=== PATIENT | female | born 1985 | race Caucasian/White ===

== ENCOUNTER 2018-11-09 19:06 | Emergency (ER) | payer BC, OTHER ==
[2018-11-09 19:26] VITALS: BP 98/39; PULSE 79; TEMP 98.2; BMI 34.0
--- NOTE | 2018-11-09 20:42 | PDOC ---
History of Present Illness - General History Source: Patient Exam Limitations: No Limitations - History of Present Illness Initial Comments: 11/09/18 21:07 The patient is a 33 year old A2 female with no significant past medical history who presents to the emergency department for evaluation of a 3 day history of back pain with nausea and vomiting. Patient reports moderate lower back pain which radiates to her lower abdomen. She reports intermittent episodes of nausea with non bloody emesis. Denies prior history of c-sections. Patient states she knows she is as she had a recent positive test. Denies any care consultation. Patient denies taking medication for her aforementioned symptoms. Patients LMP 08/19/18. The patient denies vaginal bleeding, chest pain, shortness of breath, headache, dizziness, fever, chills, diarrhea and constipation. Denies dysuria, frequency, urgency and hematuria. Allergies: No known drug allergies Past surgical history: None reported. Social history: No reported cigarette, alcohol, or drug use. PCP: None reported <Roc Moreno - Last Filed: 11/09/18 21:07> <Emelia Worrell - Last Filed: 11/09/18 22:58> - General Chief Complaint: Pain Stated Complaint: 4 W PREG/BACK PAIN Time Seen by Provider: 11/09/18 20:26 Past History <Roc Moreno - Last Filed: 11/09/18 21:07> - Past Medical History COPD: No DVT: No Other medical history: Pt denies - Reproductive History (#): 3 Para: 2 - Suicide/Smoking/Psychosocial Hx Smoking History: Never smoked Have you smoked in the past 12 months: No Information on smoking cessation initiated: No Hx Alcohol Use: No Drug/Substance Use Hx: No <Emelia Worrell - Last Filed: 11/09/18 22:58> - Past Medical History Allergies/Adverse Reactions: Allergies Allergy/AdvReac Type Severity Reaction Status Date / Time No Known Allergies Allergy Verified 11/09/18 19:22 Home Medications: Ambulatory Orders NK [No Known Home Medication] 01/31/18 Review of Systems - Review of Systems Able to Perform ROS?: Yes Comments:: 11/09/18 21:07 CONSTITUTIONAL: Absent: fever, chills, diaphoresis, generalized weakness, malaise, loss of appetite HEENT: Absent: rhinorrhea, nasal congestion, throat pain, throat swelling, difficulty swallowing, mouth swelling, ear pain, eye pain, visual Changes CARDIOVASCULAR: Absent: chest pain, syncope, palpitations, irregular heart rate, lightheadedness , peripheral edema RESPIRATORY: Absent: cough, shortness of breath, dyspnea with exertion, orthopnea, wheezing, stridor, hemoptysis GASTROINTESTINAL: (+)Nausea. (+)Vomiting. Absent: abdominal pain, abdominal distension, diarrhea, constipation, melena, hematochezia GENITOURINARY: Absent: dysuria, frequency, urgency, hesitancy, hematuria, flank pain, genital pain MUSCULOSKELETAL: (+)back pain. Absent: myalgia, arthralgia, joint swelling SKIN: Absent: rash, itching, pallor HEMATOLOGIC/IMMUNOLOGIC: Absent: easy bleeding, easy bruising, lymphadenopathy, frequent infections ENDOCRINE: Absent: unexplained weight gain, unexplained weight loss, heat intolerance, cold intolerance NEUROLOGIC: Absent: headache, focal weakness or paresthesias, dizziness, unsteady gait, seizure, mental status changes, bladder or bowel incontinence PSYCHIATRIC: Absent: anxiety, depression, suicidal or homicidal ideation, hallucinations. <Ry Morenojhon - Last Filed: 11/09/18 21:07> *Physical Exam - Vital Signs Last Vital Signs Temp Pulse Resp BP Pulse Ox 98.2 F 79 18 98/39 L 100 11/09/18 19:23 11/09/18 19:23 11/09/18 19:23 11/09/18 19:23 11/09/18 19:23 - Physical Exam Comments: 11/09/18 21:07 GENERAL: Well developed, well nourished. Awake and alert. No acute distress. HEENT: Normocephalic, atraumatic. PERRLA, EOMI. No conjunctival pallor. Sclera are non- icteric. Moist mucous membranes. Oropharynx is clear. NECK: Supple. Full ROM. No JVD. Carotid pulses 2+ and symmetric, without bruits. No thyromegaly. No lymphadenopathy. CARDIOVASCULAR: Regular rate and rhythm. No murmurs, rubs, or gallops. Distal pulses are 2+ and symmetric. PULMONARY: No evidence of respiratory distress. Lungs clear to auscultation bilaterally. No wheezing, rales or rhonchi. ABDOMINAL: Soft. Non-tender. Non-distended. No rebound or guarding. No organomegaly. Normoactive bowel sounds. MUSCULOSKELETAL (+)bilateral lumbar pain. Normal range of motion at all joints. EXTREMITIES: No cyanosis. No clubbing. No edema. No calf tenderness. SKIN: Warm and dry. Normal capillary refill. No rashes. No jaundice. NEUROLOGICAL: Alert, awake, appropriate. Cranial nerves 2-12 intact. No deficits to light touch and temperature in face, upper extremities and lower extremities. No motor deficits in the in face, upper extremities and lower extremities. Normoreflexic in the upper and lower extremities. Normal speech. Toes are down- going bilaterally. Gait is normal without ataxia. PSYCHIATRIC: Cooperative. Good eye contact. Appropriate mood and affect. <Roc Moreno - Last Filed: 11/09/18 21:07> - Vital Signs Last Vital Signs Temp Pulse Resp BP Pulse Ox 98.2 F 79 18 98/39 L 100 11/09/18 19:23 11/09/18 19:23 11/09/18 19:23 11/09/18 19:23 11/09/18 19:23 <Emelia Worrell - Last Filed: 11/09/18 22:58> *DC/Admit/Observation/Transfer - Attestations Scribe Attestion: 11/09/18 21:07 Documentation prepared by Roc Moreno, acting as biomedical specialist for Emelia Worrell MD. <Roc Moreno - Last Filed: 11/09/18 21:07> <Emelia Worrell - Last Filed: 11/09/18 22:58> Diagnosis at time of Disposition: Hyperemesis gravidarum Qualifiers: Weeks of gestation: 8 weeks Qualified Code(s): Z3A.08 - 8 weeks gestation of - Discharge Dispostion Disposition: HOME Condition at time of disposition: Stable - Patient Instructions Additional Instructions: please follow up with your human resources trainee
[2018-11-09] MEDS ORDERED: ACETAMINOPHEN 325 MG TABLET (FP) ONE (21:03)
[2018-11-09] MEDS ORDERED: ACETAMINOPHEN 500 MG TABLET (FP) PO STA (21:05)
[2018-11-09 21:34] LABS: EPI CELLS 6.3 /HPF (0-5); HYALINE CASTS 0 /hpf (0-8); URINE APPEARANCE CLEAR; URINE BACTERIA 102.276 /hpf (NEGATIVE); URINE BILIRUBIN NEGATIVE (NEGATIVE); URINE COLOR YELLOW; URINE GLUCOSE (UA) NEGATIVE (NEGATIVE); URINE KETONE NEGATIVE (NEGATIVE); URINE LEUK ESTERASE TRACE (NEGATIVE); URINE NITRITE NEGATIVE (NEGATIVE); URINE PROTEIN NEGATIVE (NEGATIVE); URINE RBC 1 /hpf (0-4); URINE UROBILINOGEN 0.2 mg/dL (0.2-1.0); URINE WBC 3 /hpf (0-5)
== END 2018-11-09 23:02 | disposition home or self-care (01) ==
LOC: JER 19:06
DX: O26.891 Other specified pregnancy related conditions, first trimester (principal); O21.0 Mild hyperemesis gravidarum; Z3A.01 Less than 8 weeks gestation of pregnancy
CPT/HCPCS: 36415; 76801-TC; 81003; 84702; 87086; 99282-25

== ENCOUNTER 2018-11-29 07:47 | Emergency (ER) | payer SELFPAY ==
[2018-11-29 07:57] VITALS: BP 119/41; PULSE 70; TEMP 97.9; BMI 29.4
[2018-11-29] MEDS ORDERED: diphenhydrAMINE HCL 25 MG CAPSULE (FP) PO ONE ×2 (08:40→08:48)
[2018-11-29] MEDS ORDERED: HYDROCORTISONE 1% TOPICAL OINT 30 GM TUBE TP ONE (08:43)
--- NOTE | 2018-11-29 08:59 | PDOC ---
Attending Attestation - Resident Resident Name: Ulysses Aguiar - ED Attending Attestation I have performed the following: I have examined & evaluated the patient, The case was reviewed & discussed with the resident, I agree w/resident's findings & plan, Exceptions are as noted - HPI HPI: 11/29/18 08:59 33 F , @ 12 weeks, presenting to ED with scalp itching. Pt states that her scalp started itching a few days ago and has been progressively worsening. She denies any new shampoos or conditioners. However, she states that since she started having itching, she has been washing her hair 3 times daily. Denies any rash. Denies itching anywhere else on her body. Pt denies h/o eczema. No h/o lice or fungal infections. - Physicial Exam PE: 11/29/18 09:05 GENERAL: Awake, alert, and fully oriented, in no acute distress. HEAD: No signs of trauma EYES: PERRLA, EOMI, sclera anicteric, conjunctiva clear ENT: Auricles normal inspection, hearing grossly normal, nares patent, oropharynx clear without exudates. Moist mucosa NECK: Nontender, no stepoffs, Normal ROM, supple, no lymphadenopathy, JVD, or masses LUNGS: Breath sounds equal, clear to auscultation bilaterally. No wheezes, and no crackles HEART: Regular rate and rhythm, normal S1 and S2, no murmurs, rubs or gallops ABDOMEN: Soft, nontender, normoactive bowel sounds. No guarding, no rebound. No masses EXTREMITIES: Normal range of motion, no edema. No clubbing or cyanosis. No cords, erythema, or tenderness NEUROLOGICAL: Cranial nerves II through XII intact. 5/5 strength and sensation in all extremities, Normal speech, normal gait, normal cerebellar function SKIN: mildly erythematous scalp with no ulcers or lesions, no folliculitis, no scaling, no excoriations, no scabs, no nits or lice - Medical Decision Making 11/29/18 09:06 33 F with scalp itching. Possible allergic reaction vs atopic dermatitis. No evidence of lice. No scaling lesions to suggest tinea. No signs of folliculitis or other skin infection. - Benadryl - Topical steroids - Derm f/u Pt is well appearing, with normal vitals. Clinically stable for DC at this time. I discussed the physical exam findings, ancillary test results and final diagnoses with the patient. I answered all of the patient's questions. The patient was satisfied with the care received and felt comfortable with the discharge plan and treatment plan. The patient agrees to follow up with the primary care physician within 24-72 hours.
--- NOTE | 2018-11-29 09:40 | PDOC ---
History of Present Illness - General Chief Complaint: Headache Stated Complaint: HEADACHE, 11wks Time Seen by Provider: 11/29/18 07:49 - History of Present Illness Initial Comments: 11/29/18 09:39 33 F , , at 12 weeks, presenting to ED with scalp itching and pain. Pt states that her scalp started itching on Thursday and got much worse over the past few days to the point where her scalp in painful. She dyes her own hair and the last time it was dyed was 12 days ago. No new hair products used. However, she states that since she started having itching, she has been washing her hair 3 times daily. Complains that her lymph nodes are swollen behing her ear and over her neck. Denies any rash. Denies itching anywhere else on her body. Pt denies h/o eczema. No h/o lice or fungal infections. Past History - Past Medical History Allergies/Adverse Reactions: Allergies Allergy/AdvReac Type Severity Reaction Status Date / Time No Known Allergies Allergy Verified 11/29/18 07:52 Home Medications: Ambulatory Orders Diphenhydramine [Benadryl -] 50 mg PO DAILY #20 capsule 11/29/18 COPD: No DVT: No - Reproductive History (#): 3 Para: 2 - Suicide/Smoking/Psychosocial Hx Smoking History: Never smoked Have you smoked in the past 12 months: No Information on smoking cessation initiated: No Hx Alcohol Use: No Drug/Substance Use Hx: No Review of Systems - Review of Systems Able to Perform ROS?: Yes Is the patient limited Vietnamese proficient: No Constitutional: No: Symptoms Reported HEENTM: Yes: See HPI Respiratory: No: Symptoms reported Cardiac (ROS): No: Symptoms Reported ABD/GI: No: Symptoms Reported Integumentary: Yes: See HPI Neurological: No: Symptoms reported All Other Systems: Reviewed and Negative *Physical Exam - Vital Signs Last Vital Signs Temp Pulse Resp BP Pulse Ox 97.9 F 70 17 119/41 L 100 11/29/18 07:49 11/29/18 07:49 11/29/18 07:49 11/29/18 07:49 11/29/18 07:49 - Physical Exam General Appearance: Yes: Nourished, Appropriately Dressed, Mild Distress HEENT: positive: Other (no rashes or wounds seen over scalp, no lice or eggs either. ) Respiratory/Chest: positive: Lungs Clear, Normal Breath Sounds. negative: Chest Tender, Respiratory Distress Cardiovascular: positive: Regular Rhythm, Regular Rate, S1, S2 Gastrointestinal/Abdominal: positive: Normal Bowel Sounds, Flat, Soft. negative : Tender Integumentary: positive: Normal Color, Dry, Warm Neurologic: positive: Fully Oriented, Alert, Normal Mood/Affect, Normal Response , Motor Strength 12/19 ED Treatment Course - Medications Given in the ED: ED Medications Discontinued Medications Generic Name Dose Route Start Last Admin Trade Name Dieter PRN Reason Stop Dose Admin Diphenhydramine HCl 50 mg 11/29/18 08:40 11/29/18 09:09 Benadryl - PO 11/29/18 08:41 50 mg ONCE ONE Administration Hydrocortisone 1 applic 11/29/18 08:43 11/29/18 09:09 Hytone 1% Ointment - TP 11/29/18 08:44 1 applic ONCE ONE Administration Medical Decision Making - Medical Decision Making 11/29/18 09:51 Atopic dermatitis of vs allergic reaction vs tenia capitus No sign of rash or skin lesions over scalp. Will give trial of Benadryl and reassess the patient. Patient feels much better after Benadryl administration. ok to dc *DC/Admit/Observation/Transfer Diagnosis at time of Disposition: Allergic reaction - Discharge Dispostion Disposition: HOME Condition at time of disposition: Improved Decision to Admit order: No - Prescriptions Prescriptions: Diphenhydramine [Benadryl -] 50 mg PO DAILY #20 capsule - Referrals - Patient Instructions Printed Discharge Instructions: Allergen Skin Testing Additional Instructions: Purchase a hydrating shampoo. Come back to the emergency department for any new, worsening or concerning symptom. Print Language: TURKMEN - Post Discharge Activity
== END 2018-11-29 10:01 | disposition home or self-care (01) ==
LOC: JER 07:47
DX: O26.891 Other specified pregnancy related conditions, first trimester (principal); L29.8 Other pruritus; T78.40XA Allergy, unspecified, initial encounter; Z3A.12 12 weeks gestation of pregnancy
CPT/HCPCS: 99281-25

== ENCOUNTER 2018-12-02 15:26 | Emergency (ER) | payer BC ==
[2018-12-02 15:48] VITALS: BP 95/66; PULSE 84; TEMP 98.6; BMI 26.2
[2018-12-02] MEDS ORDERED: LORATADINE 10 MG TABLET PO ONE (16:27)
[2018-12-02] MEDS ORDERED: diphenhydrAMINE HCL 25 MG CAPSULE (FP) PO ONE ×2 (16:29→16:31)
[2018-12-02] MEDS ORDERED: LORATADINE 10 MG TABLET ONE (16:31)
--- NOTE | 2018-12-02 16:36 | PDOC ---
History of Present Illness - General Chief Complaint: Itching Stated Complaint: 11 WKS/ HAND,FEET RASH Time Seen by Provider: 12/02/18 16:05 History Source: Patient - History of Present Illness Initial Comments: 12/02/18 16:30 33 year old female 11 weeks with itchiness to scalp, palm of hands and sole of feet b/l since yesterday. took benadryl last night with no improvement in symptoms. Past History - Past Medical History Allergies/Adverse Reactions: Allergies Allergy/AdvReac Type Severity Reaction Status Date / Time No Known Allergies Allergy Verified 11/29/18 07:52 Home Medications: Ambulatory Orders Diphenhydramine [Benadryl -] 50 mg PO DAILY #20 capsule 11/29/18 Loratadine [Claritin] 10 mg PO DAILY #30 tablet 12/02/18 Pramoxine HCl/Calamine [Calamine Medicated Lotion] 1 ml TP QID PRN #1 lotion COPD: No DVT: No - Reproductive History (#): 3 Para: 2 - Immunization History Immunization Up to Date: No - Suicide/Smoking/Psychosocial Hx Smoking History: Never smoked Have you smoked in the past 12 months: No Information on smoking cessation initiated: No Hx Alcohol Use: No Drug/Substance Use Hx: No Review of Systems - Review of Systems Able to Perform ROS?: Yes Is the patient limited South African proficient: No Constitutional: Yes: Symptoms Reported Integumentary: Yes: Pruritus *Physical Exam - Vital Signs Last Vital Signs Temp Pulse Resp BP Pulse Ox 98.6 F 84 18 95/66 99 12/02/18 15:43 12/02/18 15:43 12/02/18 15:43 12/02/18 15:43 12/02/18 15:43 - Physical Exam General Appearance: Yes: Appropriately Dressed HEENT: positive: Normal ENT Inspection Respiratory/Chest: positive: Lungs Clear, Normal Breath Sounds Integumentary: positive: Other (erythema to sole of feet and palm of hands. ) Neurologic: positive: Fully Oriented, Alert Progress Note - Progress Note Progress Note: allergic / hypersensitivity to products p: benadryl claritin calamine advised hypoallergenic products *DC/Admit/Observation/Transfer Diagnosis at time of Disposition: Allergic reaction Qualifiers: Encounter type: initial encounter Qualified Code(s): T78.40XA - Allergy, unspecified, initial encounter - Discharge Dispostion Disposition: HOME Condition at time of disposition: Stable - Prescriptions Prescriptions: Loratadine [Claritin] 10 mg PO DAILY #30 tablet Pramoxine HCl/Calamine [Calamine Medicated Lotion] 1 ml TP QID PRN #1 lotion PRN Reason: For Itching - Referrals - Patient Instructions Printed Discharge Instructions: DI for General Allergic Reactions Additional Instructions: apply calamine lotion to the area. take claritin daily start using hypoallergenic products. follow up with your doctor as soon as possible. - Post Discharge Activity Forms/Work/School Notes: Back to Work
== END 2018-12-02 16:51 | disposition home or self-care (01) ==
LOC: JERFT 15:26
DX: O26.891 Other specified pregnancy related conditions, first trimester (principal); T78.49XA Other allergy, initial encounter; X58.XXXA Exposure to other specified factors, initial encounter
CPT/HCPCS: 99281-25

== ENCOUNTER 2019-01-19 15:20 | Emergency (ER) | payer BC | END 2019-01-19 18:57 | disposition home or self-care (01) | LOC: JER 15:20 ==

== ENCOUNTER 2019-06-06 06:50 | Inpatient (IN) | payer BC ==
[2019-06-06] MEDS: ELECTROLYTE-148 SOLN 1,000 ML IV SCH ×2 (10:15→21:00)
[2019-06-06 10:20] VITALS: BMI 27.6
[2019-06-06] MEDS ORDERED: AMPICILLIN - 2 GM in SODIUM CHLORIDE 100 ML IVPB ONE (10:30)
[2019-06-06] MEDS ORDERED: OXYTOCIN 30 UNITS in 0.9% NS 30 UNIT/500 ML INFUS.BAG IVPB SCH (10:30)
[2019-06-06] MEDS ORDERED: AMPICILLIN SODIUM 2 GM VIAL ONE (10:42)
[2019-06-06 10:47] LABS: BASO % 0.7 % (0-2.0); HEMATOCRIT 41.2 % (32.4-45.2); HEMOGLOBIN 13.6 GM/dL (10.7-15.3); LYMPH % 19.9 % (8-40); MEAN CELL VOLUME 84.8 fl (80-96); MEAN PLT VOLUME 7.9 fl (7.5-11.1); MONO % 5.5 % (3.8-10.2); NEUT % 72.9 % (42.8-82.8); PLATELET COUNT 435 K/MM3 (134-434); RBC 4.86 M/mm3 (3.60-5.2); RDW 15.4 % (11.6-15.6); WHITE BLOOD COUNT 9.7 K/mm3 (4.0-10.0)
--- NOTE | 2019-06-06 10:56 | HP ---
Past Medical History - Admission Chief Complaint: Labor pain History of Present Illness: 33 yo @ 38 weeks gestation, EDC, 06/18/19, admitted for labor pain. She denies any rupture of membrane nor vaginal bleeding. Upon admission she was 4cm dilated History Source: Patient Limitations to Obtaining History: No Limitations - Past Medical History Pulmonary: Yes: Asthma ...: 5 ...Para: 2 ...Term: 2 ...: 0 ...Spon : 2 ...Induced : 0 ...Multiple Gestation: 0 ...LMP: 12/08/18 ...EDC by Sono: 06/18/19 - Past Surgical History Past Surgical History: Yes: None Hx Myomectomy: No Hx Transabdominal Cerclage: No - Smoking History Smoking history: Never smoked Have you smoked in the past 12 months: No - Alcohol/Substance Use Hx Alcohol Use: No - Social History Usual Living Arrangement: Yes: With Significant Other History of Recent Travel: No Home Medications - Allergies Allergies/Adverse Reactions: Allergies Allergy/AdvReac Type Severity Reaction Status Date / Time kiwi Allergy Mild Swelling Verified 06/06/19 08:11 - Home Medications Home Medications: Ambulatory Orders Albuterol Sulfate Inhaler - [Ventolin HFA Inhaler -] 1 puff PO PRN 06/06/19 Family Medical History Family History: Unremarkable Review of Systems - Review of Systems Constitutional: reports: No Symptoms Eyes: reports: No Symptoms HENT: reports: No Symptoms Neck: reports: No Symptoms Cardiovascular: reports: No Symptoms Respiratory: reports: No Symptoms Gastrointestinal: reports: No Symptoms Genitourinary: reports: Pain Breasts: reports: No Symptoms Reported Musculoskeletal: reports: No Symptoms Integumentary: reports: No Symptoms Neurological: reports: No Symptoms Endocrine: reports: No Symptoms Hematology/Lymphatic: reports: No Symptoms Psychiatric: reports: No Symptoms Pain Intensity: 5 Physical Exam - Maternity Vital Signs: Vital Signs Temperature 97.7 F 06/06/19 10:06 Pulse Rate 78 06/06/19 10:06 Respiratory Rate 17 06/06/19 10:06 Blood Pressure 119/80 06/06/19 10:06 O2 Sat by Pulse Oximetry (%) Constitutional: Yes: Well Nourished Eyes: Yes: Conjunctiva Clear HENT: Yes: Atraumatic Neck: Yes: Supple Cardiovascular: Yes: Regular Rate and Rhythm Lungs: Clear to auscultation Breast(s): Yes: WNL - Abdominal Exam/OB Number of Fetuses: Single Presentation: Vertex Contractions: Yes - Vaginal Exam/OB Vaginal Bleediing: No Dilatation (cm): 4 Effacement (%): 80 Amniotic Membrane Status: Intact Presentation: Vertex/Position Station: -2 - Physical Exam ...Motor Strength: WNL Psychiatric: Yes: Alert, Oriented - Labs Lab Results: CBC, BMP 06/06/19 10:20 Problem List - Problems (1) 38 weeks gestation of Code(s): Z3A.38 - 38 WEEKS GESTATION OF (2) Pain during labor Code(s): O99.89 - OTH DISEASES AND CONDITIONS COMPL PREG/CHLDBRTH; R52 - PAIN, UNSPECIFIED Assessment/Plan 38 weeks gestation Labor pain Analgesia as needed Anticipate
[2019-06-06] MEDS ORDERED: DEXTROSE 5%-LACTATED RINGERS 1,000 ML IV SCH (11:00)
[2019-06-06 11:01] LABS: INR 0.91 (0.83-1.09); PROTHROMBIN TIME (PATIENT) 10.7 SEC (9.7-13.0)
[2019-06-06 11:04] LABS: ACTIVATED PTT 28.8 SECONDS (25.2-36.5)
[2019-06-06 11:06] LABS: BLOOD UREA NITROGEN 8.2 mg/dL (7-18); CALCIUM 9.1 mg/dL (8.5-10.1); CREATININE 0.6 mg/dL (0.55-1.3); POTASSIUM 4.1 mmol/L (3.5-5.1)
[2019-06-06] MEDS ORDERED: OXYTOCIN 30 UNITS in 0.9% NS 30 UNIT/500 ML INFUS.BAG IVPB ONE (12:32)
[2019-06-06] MEDS ORDERED: BUTORPHANOL TARTRATE 1 MG/ML VIAL ONE ×2 (13:49)
[2019-06-06] MEDS ORDERED: PROMETHAZINE HCL 25 MG/1 ML VIAL ONE (13:49)
[2019-06-06] MEDS ORDERED: OXYTOCIN 20 UNITS in 0.9% NS 20 UNIT/1,000 ML INFUS.BAG IV ONE ×3 (14:46→19:06)
[2019-06-06] MEDS ORDERED: WITCH HAZEL 50% (TUCKS) 40 PAD/JAR PAD TP PRN (15:50)
[2019-06-06] MEDS ORDERED: METHYLERGONOVINE MALEATE 0.2 MG/1 ML AMP IM PRN (15:50)
[2019-06-06] MEDS ORDERED: BISACODYL 10 MG SUPP.RECT RC PRN (15:50)
[2019-06-06] MEDS ORDERED: BENZOCAINE 20% 57 GM BOTTLE TP PRN (15:50)
[2019-06-06] MEDS ORDERED: BENZOCAINE 28 GM HEMORRHOIDAL OINTMENT TP PRN (15:50)
--- NOTE | 2019-06-06 15:54 | PN ---
Delivery - Delivery Vaginal Delivery: Spontaneous Episiotomy/Laceration: None EBL (cc): 300 Delivery, Single - Feeding Plan Initial Plan: Exclusive throughout hospitalization Remarks - Remarks Remarks: Normal spontaneous vaginal delivery of a live girl over intact perineum. Tight nuchal cord x 1 clamped and cut. Baby handed to nurse. Placenta expelled manually. Mother in stable condition.
[2019-06-06] MEDS ORDERED: OXYTOCIN 20 UNITS in 0.9% NS 20 UNIT/1,000 ML INFUS.BAG IV SCH (16:00)
[2019-06-06] MEDS ORDERED: IBUPROFEN 600 MG TABLET (FP) PO ONE (16:46)
[2019-06-06] MEDS ORDERED: ACETAMINOPHEN 325 MG TABLET (FP) ONE (16:47)
[2019-06-06] MEDS: IBUPROFEN 600 MG TABLET (FP) PO PRN (16:48)
[2019-06-06] MEDS: ACETAMINOPHEN 325 MG TABLET (FP) PO PRN (16:49)
[2019-06-06] MEDS: AMPICILLIN - 1 GM in SODIUM CHLORIDE 100 ML IVPB SCH ×3 (16:54→21:50)
[2019-06-06] MEDS ORDERED: MEPERIDINE HCL 50 MG/ML VIAL ONE (18:48)
[2019-06-06] MEDS ORDERED: SUCCINYLCHOLINE CHLORIDE 200 MG/10 ML SYRINGE ONE (19:18)
[2019-06-06] MEDS ORDERED: PROPOFOL 20 ML ONE (19:18)
[2019-06-06] MEDS ORDERED: MIDAZOLAM HCL 2 MG/2 ML SINGLE DOSE VIAL ONE (19:18)
[2019-06-06] MEDS ORDERED: PHENYLEPHRINE HCL 10 MG/1 ML SINGLE DOSE VIAL ONE (19:26)
--- NOTE | 2019-06-06 19:30 | CONSULT ---
Past Medical History, Laborist - Primary Care Physician PCP:: Ambar Dow - Admission Chief Complaint: Called to the patient's bedside by nursing staff. Reason: hemorrhage not responding to oxytocin. Patient is few hours after vaginal delivery of her third child. Nurse could not controlled the bleeding. Uterus difficult to palpate. Active bleeding. Limitations to Obtaining History: Language Barrier - Past Medical History ...: 5 ...Para: 2 ...Term: 2 ...: 0 ...Spon : 2 ...Induced : 0 ...Multiple Gestation: 0 ...LMP: 12/08/18 ...EDC by Sono: 06/18/19 - Past Surgical History Past Surgical History: Yes: None - Smoking History Smoking history: Never smoked Have you smoked in the past 12 months: No - Alcohol/Substance Use Hx Alcohol Use: No - Social History Usual Living Arrangement: With Spouse History of Recent Travel: No Physical Exam - Maternity Vital Signs: Vital Signs Temperature 99.6 F 06/06/19 15:30 Pulse Rate 82 06/06/19 19:05 Respiratory Rate 17 06/06/19 19:05 Blood Pressure 105/56 L 06/06/19 19:05 O2 Sat by Pulse Oximetry (%) 98 06/06/19 16:30 Constitutional: Yes: Well Nourished HENT: Yes: WNL - Labs Lab Results: CBC, BMP 06/06/19 10:20 06/06/19 09:53 Problem List - Problems (1) hemorrhage Code(s): O72.1 - OTHER IMMEDIATE HEMORRHAGE (2) Retained placenta Code(s): O73.0 - RETAINED PLACENTA WITHOUT HEMORRHAGE Assessment/Plan Called to the patient who was bleeding profusely. Bleeding could not be controlled with medication. Patient was also in pain and uncooperative. few hours prior. On examination uterus was noted to be boggy and very difficult to palpate the fundus. Abdomen was soft and nontender otherwise. Pelvic examination showed intact vagina. There was close to 1000 mL of clots in the posterior vaginal fornix. This was all removed digitally. Vital signs were stable. With clots removed cervix was palpated. Internal os was closed. There was a sense of part of placenta in the internal os. Fundus was palpated and massaged with good reaction. Uterus firmed up and bleeding subsided. Still, I suspected it retained placental tissue trapped in the cervix. PLAN was to insert Acuña catheter to empty her bladder and to take patient to the operating room. Under short and light anesthesia placental tissue would be digitally removed and large curet D&C followed. At that point patient's attending, Dr. Dow, arrived and took over the management of the case.
[2019-06-06] MEDS ORDERED: ONDANSETRON 4 MG/2 ML VIAL IVPUSH PRN (19:44)
[2019-06-06] MEDS ORDERED: IBUPROFEN 600 MG TABLET (FP) PO PRN (19:45)
[2019-06-06] MEDS ORDERED: KETOROLAC TROMETHAMINE 30 MG/1 ML VIAL IVPUSH ONE (19:45)
[2019-06-06] MEDS ORDERED: D5W-LR W/ 20 UNITS OXYTOCIN 20 UNIT/1,000 ML INFUS.BAG IV SCH (19:45)
[2019-06-06] MEDS ORDERED: ACETAMINOPHEN 1000 MG/100 ML VIAL (NON FORMULARY) IVPB ONE (19:45)
[2019-06-06 22:44] LABS: HEMATOCRIT 27.9 % (32.4-45.2); MCH 27.5 pg (25.7-33.7); MCHC 32.3 g/dl (32.0-36.0); MEAN CELL VOLUME 85.2 fl (80-96); MEAN PLT VOLUME 7.8 fl (7.5-11.1); PLATELET COUNT 354 K/MM3 (134-434); RBC 3.27 M/mm3 (3.60-5.2); RDW 15.2 % (11.6-15.6); WHITE BLOOD COUNT 11.5 K/mm3 (4.0-10.0)
[2019-06-06] MEDS ORDERED: OXYTOCIN 10 UNITS/ML VIAL ONE (22:48)
[2019-06-06 22:57] LABS: INR 1.02 (0.83-1.09)
--- NOTE | 2019-06-06 23:03 | CONSULT ---
Past Medical History, Laborist - Primary Care Physician PCP:: Ambar Dow - Admission Chief Complaint: Called to bedside, patient is in PACU, s/p and PP D&C by Dr. Dow. Nurses noted significan VB and clots post procedure. Noted HR - 105. BP 90s/50s History of Present Illness: Spoke to on the phone, she informed me that there was no tissue on D&C, and no lacerations found. - Past Medical History ...: 5 ...Para: 2 ...Term: 2 ...: 0 ...Spon : 2 ...Induced : 0 ...Multiple Gestation: 0 ...LMP: 12/08/18 ...EDC by Sono: 06/18/19 - Past Surgical History Past Surgical History: Yes: None - Smoking History Smoking history: Never smoked Have you smoked in the past 12 months: No - Alcohol/Substance Use Hx Alcohol Use: No - Social History History of Recent Travel: No Physical Exam - Maternity Vital Signs: Vital Signs Temperature 98.7 F 06/06/19 19:48 Pulse Rate 75 06/06/19 20:15 Respiratory Rate 17 06/06/19 20:15 Blood Pressure 99/54 L 06/06/19 20:15 O2 Sat by Pulse Oximetry (%) 97 06/06/19 20:15 Constitutional: Yes: Well Nourished, No Distress, Calm - Abdominal Exam/OB Fundal Height: 22 (above umbilicus) - Vaginal Exam/OB Vaginal Bleediing: Yes (total 600cc blood and clots extracted bladder found to be distanded) - Labs Lab Results: CBC, BMP 06/06/19 22:15 Assessment/Plan Acuña catheter placed, 1100cc Urine drained 1000mg Cytotec placed rectally Uterus further decloted CBC, PT,PTT sent continue monitoring in the PACU
[2019-06-06 23:37] LABS: BLOOD UREA NITROGEN 7.7 mg/dL (7-18); CALCIUM 7.2 mg/dL (8.5-10.1); CREATININE 0.5 mg/dL (0.55-1.3); POTASSIUM 3.9 mmol/L (3.5-5.1)
[2019-06-07] MEDS: FERROUS SO4 325 MG TABLET (FP) PO SCH ×3 (00:50→21:24)
[2019-06-07] MEDS: ACETAMINOPHEN 325 MG TABLET (FP) PO PRN ×4 (03:00→21:26)
[2019-06-07] MEDS: IBUPROFEN 600 MG TABLET (FP) PO PRN ×3 (03:00→15:18)
--- NOTE | 2019-06-07 08:40 | OP ---
Operative Note - Note: Operative Date: 06/06/19 Pre-Operative Diagnosis: hemorrhage Operation: Suction D&C Findings: No retained of placenta Post-Operative Diagnosis: Same as Pre-op Surgeon: Ambar Dow Anesthesia: Spinal Specimens Removed: POC Estimated Blood Loss (mls): 50 Operative Report Dictated: Yes
[2019-06-07 10:32] LABS: BASO % 0.3 % (0-2.0); EOS % 0.6 % (0-4.5); HEMATOCRIT 19.5 % (32.4-45.2); LYMPH % 14.4 % (8-40); MCH 28.8 pg (25.7-33.7); MCHC 34.1 g/dl (32.0-36.0); MEAN CELL VOLUME 84.6 fl (80-96); MEAN PLT VOLUME 7.6 fl (7.5-11.1); MONO % 5.6 % (3.8-10.2); NEUT % 79.1 % (42.8-82.8); PLATELET COUNT 302 K/MM3 (134-434); RBC 2.31 M/mm3 (3.60-5.2); RDW 15.4 % (11.6-15.6); WHITE BLOOD COUNT 10.9 K/mm3 (4.0-10.0)
[2019-06-07 10:33] LABS: HEMOGLOBIN 6.7 GM/dL (10.7-15.3)
--- NOTE | 2019-06-07 10:47 | PN ---
Progress Note (short form) - Note Progress Note: Anesthesia POD#1 S/P D&C and Removal of Retained products under spinal anesthesia VSS,Hg dropped profoundly 6gm. No N/V or pain. She might have to go to the OR for re-exploration. Please do T/C 2 units of PRBCs Sherri Atkins MD.
--- NOTE | 2019-06-07 10:48 | PN ---
Post Progress Note - Subjective Subjective: 33 yo Para 3 status post vaginal delivery complicated by hemorrhage, seen and evaluated. Post Day: 1 Type of Delivery: Vital Signs: Vital Signs Temperature 98.7 F 06/07/19 08:54 Pulse Rate 92 H 06/07/19 08:54 Respiratory Rate 20 06/07/19 08:54 Blood Pressure 95/61 06/07/19 08:54 O2 Sat by Pulse Oximetry (%) 97 06/07/19 05:39 - Labs Labs: CBC WBC 10.9 K/mm3 (4.0-10.0) H 06/07/19 09:38 RBC 2.31 M/mm3 (3.60-5.2) L 06/07/19 09:38 Hgb 6.7 GM/dL (10.7-15.3) L* 06/07/19 09:38 Hct 19.5 % (32.4-45.2) L D 06/07/19 09:38 MCV 84.6 fl (80-96) 06/07/19 09:38 MCH 28.8 pg (25.7-33.7) 06/07/19 09:38 MCHC 34.1 g/dl (32.0-36.0) 06/07/19 09:38 RDW 15.4 % (11.6-15.6) 06/07/19 09:38 Plt Count 302 K/MM3 (134-434) 06/07/19 09:38 MPV 7.6 fl (7.5-11.1) 06/07/19 09:38 Absolute Neuts (auto) 8.6 K/mm3 (1.5-8.0) H 06/07/19 09:38 Neutrophils % 79.1 % (42.8-82.8) 06/07/19 09:38 Lymphocytes % 14.4 % (8-40) D 06/07/19 09:38 Monocytes % 5.6 % (3.8-10.2) 06/07/19 09:38 Eosinophils % 0.6 % (0-4.5) 06/07/19 09:38 Basophils % 0.3 % (0-2.0) 06/07/19 09:38 Nucleated RBC % 0 % (0-0) 06/07/19 09:38 Problem List - Problems (1) 38 weeks gestation of Code(s): Z3A.38 - 38 WEEKS GESTATION OF (2) Pain during labor Code(s): O99.89 - OTH DISEASES AND CONDITIONS COMPL PREG/CHLDBRTH; R52 - PAIN, UNSPECIFIED
[2019-06-07] MEDS: PRENATAL VITAMINS W/ FOLIC ACID TABLET (FP) PO SCH (11:04)
--- NOTE | 2019-06-07 12:09 | OP ---
DATE OF OPERATION: 06/06/2019 PREOPERATIVE DIAGNOSIS: hemorrhage. POSTOPERATIVE DIAGNOSES: hemorrhage. PROCEDURE: Suction dilation and curettage. SURGEON: Ambar Dow MD ANESTHESIA: Spinal. ESTIMATED BLOOD LOSS: 50 mL. DESCRIPTION OF PROCEDURE: Patient was taken to the operating room several hours after vaginal delivery due to heavy bleeding. Due to suspicion of retained placenta, patient was then taken to the operating room for a suction dilation and curettage. In the operating room, she was placed in lithotomy position. After general anesthesia, a weighted speculum was placed in the vagina. The anterior lip of the cervix was grasped with a single-tooth tenaculum. Then a 12-mm suction curette was then gently introduced into the uterine cavity. The suction curette was rotated to clear the uterus of all products of conception. There were no large pieces found. No placenta was found. Then the instruments were removed. The patient was taken out of lithotomy position. She was taken to PACU in stable condition. AMBAR DOW M.D. WEN/[id number]
[2019-06-07] MEDS ORDERED: SENNOSIDES/DOCUSATE COMBO (SENNA PLUS) TABLET (UD) PO PRN (22:00)
[2019-06-08 00:46] LABS: BASO % 0.2 % (0-2.0); EOS % 2.1 % (0-4.5); HEMOGLOBIN 8.2 GM/dL (10.7-15.3); LYMPH % 20.6 % (8-40); MCH 27.8 pg (25.7-33.7); MCHC 32.9 g/dl (32.0-36.0); MEAN CELL VOLUME 84.7 fl (80-96); MEAN PLT VOLUME 7.8 fl (7.5-11.1); MONO % 8.9 % (3.8-10.2); NEUT % 68.2 % (42.8-82.8); PLATELET COUNT 298 K/MM3 (134-434); RBC 2.95 M/mm3 (3.60-5.2); RDW 14.8 % (11.6-15.6); WHITE BLOOD COUNT 10.4 K/mm3 (4.0-10.0)
[2019-06-08] MEDS: ACETAMINOPHEN 325 MG TABLET (FP) PO PRN ×2 (05:36→12:38)
[2019-06-08] MEDS: IBUPROFEN 600 MG TABLET (FP) PO PRN ×2 (05:36→12:38)
--- NOTE | 2019-06-08 07:00 | DS ---
Physical Exam-IT DIRECTOR Vital Signs: Vital Signs Temperature 97.4 F L 06/08/19 05:39 Pulse Rate 75 06/08/19 05:39 Respiratory Rate 18 06/08/19 05:39 Blood Pressure 94/59 L 06/08/19 05:39 O2 Sat by Pulse Oximetry (%) 97 06/07/19 05:39 Constitutional: Yes: Well Nourished, No Distress ....Post : Yes: Uterus firm, Uterus non-tender Breast(s): Yes: WNL Musculoskeletal: Yes: WNL Extremities: Yes: WNL Edema: No Neurological: Yes: WNL, Alert, Oriented Labs: CBC, BMP 06/08/19 00:00 06/06/19 22:15 Delivery - Delivery Vaginal Delivery: Spontaneous Type of Anesthesia: None Episiotomy/Laceration: None EBL (cc): 300 Delivery, Single - Stages of Labor Date 1st Stage Initiatied: 06/06/19 Time 1st Stage Initiated: 02:30 Date 2nd Stage Initiated: 06/06/19 Time 2nd Stage Initiated: 13:30 Date of Delivery: 06/06/19 Time of Delivery: 14:53 Time Placenta Delivered: 14:57 - Condition of Infant Oil Well Fishing Tool Technician/Senior Computer Specialist Present: Yes Name: Sarah Woodson Infant Gender: Female Weight: 6 lb 10 oz Position: Left, OA Total Hours ROM (Hrs/Mins): 1Hrs/27Mins - 1 Minute Total Score: 2 5 Minutes Total Score: 8 10 Minutes Total Score: 9 - Feeding Plan Initial Plan: Exclusive throughout hospitalization Discharge Summary Problems reviewed: Yes Reason For Visit: LABOR ADMISSION Current Active Problems 38 weeks gestation of (Acute) Pain during labor (Acute) hemorrhage (Acute) Retained placenta (Acute) Procedures: Principal: Normal vaginal delivery\. suction DC Hospital Course: hemorrhage transfusion Plan of Treatment: discharge home on Iron Condition: Stable - Instructions Diet, Activity, Other Instructions: Physical activity Resume your normal everyday activity as tolerated no heavy lifting or exercise until seen by your surgeon. You may walk unlimited franck of and climb stairs. You may resume driving the car when you feel safe and comfortable behind the wheel. No sexual activity as instructed. Wound care If you have a bandage, leave it on, and keep dry for 48-72 hours. After that time discard the outer bandage. If they are tapes on the skin under the out of bandage leave them in place. They will peel off in the next 7 to 10 days. Do Not Peel them off. You may shower the day after surgery. If there are tapes present on the skin, you may shower over them. Diet There are no dietary restrictions. Eat healthy, high-fiber foods. Drink 6 to 8 glasses of liquid each day. This will assist in keeping your bowels are regular. Pain management You may take Tylenol or acetaminophen or Ibuprofen (for example, Motrin, Advil etc.) from my pain prescription medication is ordered should be taken as prescribed for moderate to severe pain. Call MD for any of the following: Severe pain not relieved by medication Fever of 101 or higher Excessive bleeding or drainage on dressing Inability to urinate Disposition: HOME - Home Medications Comprehensive Discharge Medication List: Ambulatory Orders Albuterol Sulfate Inhaler - [Ventolin HFA Inhaler -] 1 puff PO PRN 06/06/19 Ibuprofen [Motrin -] 600 mg PO QID #28 tablet 06/08/19
[2019-06-08] MEDS: FERROUS SO4 325 MG TABLET (FP) PO SCH (11:06)
[2019-06-08] MEDS: PRENATAL VITAMINS W/ FOLIC ACID TABLET (FP) PO SCH (11:06)
[2019-06-08] MEDS ORDERED: IBUPROFEN 600 MG TABLET (FP) PO ONE (12:13)
[2019-06-08 16:06] VITALS: BP 117/65; PULSE 77; TEMP 98.4
--- NOTE | 2019-06-09 17:56 | PATH ---
Surgical Pathology Report Patient Name: ROSALBA EM [facility]. Rec. #: [id number] /Age/Gender: 1985 (Age: 33) / F Account: [id number] Location: [facility] OBS/PC ANALYST Taken: 06/06/2019 Received: 06/07/2019 Reported: 06/09/2019 Physicians: Ambar Dow M.D. Specimen(s) Received PRODUCTS OF CONCEPTION Clinical History Retained products of conception Final Diagnosis PRODUCTS OF CONCEPTION, SUCTION DILATION AND CURETTAGE: FRAGMENTS OF CERVICAL SQUAMOUS AND ENDOCERVICAL MUCOSA WITH MARKED ACUTE AND CHRONIC CERVICITIS, SOFT TISSUE WITH MARKED DEGENERATIVE CHANGES IN A BACKGROUND OF ABUNDANT BLOOD AND ACUTE IN FLAMMATORY INFILTRATE. NO DEFINITIVE ENDOMETRIAL TISSUE IDENTIFIED. Electronically Signed Neyda Gatica M.D. Gross Description Received in formalin labeled "products of conception," is a 5.5 x 5.0 x 0.8 cm aggregate of red-brown soft tissue fragments. No definite villous/placental tissue identified. The entire specimen is entirely submitted in 8 cassettes. /06/07/2019 saudi/06/07/2019
== END 2019-06-08 12:05 | disposition home or self-care (01) | DRG 797 ==
LOC: JDEL 06:50 → JLDR 09:30 → J3W 06-07 00:22
PROVIDERS: ADMIT Obstetrics & Gynecology; ATTEND Obstetrics & Gynecology
PROC: 10D17ZZ Extraction of Products of Conception, Retained, Via Natural or Artificial Opening (ICD-10-PCS; 2019-06-06)
PROC: 10E0XZZ Delivery of Products of Conception, External Approach (ICD-10-PCS; principal; 2019-06-06 19:02)
PROC: 30233N1 Transfusion of Nonautologous Red Blood Cells into Peripheral Vein, Percutaneous Approach (ICD-10-PCS; 2019-06-07)
DX: O69.81X0 Labor and delivery complicated by cord around neck, without compression, not applicable or unspecified (principal); O72.2 Delayed and secondary postpartum hemorrhage; R71.0 Precipitous drop in hematocrit; Z37.0 Single live birth; Z3A.38 38 weeks gestation of pregnancy
CPT/HCPCS: 36415; 36430; 36511; 36600; 59409; 76830-TC; 80048; 82803; 85025; 85027; 85610; 85730; 86593; 86850; 86900; 86901; 86922; 94760; J0131; J2175; P9038; P9058

== ENCOUNTER 2019-06-09 17:23 | Inpatient (IN) | payer BC ==
[2019-06-09] MEDS ORDERED: SODIUM CHLORIDE 1,000 ML IV STA (17:32)
--- NOTE | 2019-06-09 17:32 | PDOC ---
Rapid Medical Evaluation Time Seen by Provider: 06/09/19 17:24 Medical Evaluation: Allergies Allergy/AdvReac Type Severity Reaction Status Date / Time kiwi Allergy Mild Swelling Verified 06/06/19 08:11 06/09/19 17:24 CC: vaginal bleeding since vaginal delivery 06/07 PE: deferred Orders: labs, urine Patient will proceed to ED for further evaluation. Discharge Disposition - Diagnosis Vaginal bleeding - Referrals - Patient Instructions - Post Discharge Activity
[2019-06-09 18:08] LABS: BASO % 0.3 % (0-2.0); EOS % 2.9 % (0-4.5); HEMATOCRIT 25.6 % (32.4-45.2); HEMOGLOBIN 8.4 GM/dL (10.7-15.3); LYMPH % 13.2 % (8-40); MCHC 32.8 g/dl (32.0-36.0); MEAN CELL VOLUME 85.5 fl (80-96); MEAN PLT VOLUME 6.9 fl (7.5-11.1); MONO % 6.6 % (3.8-10.2); PLATELET COUNT 448 K/MM3 (134-434); RBC 2.99 M/mm3 (3.60-5.2); RDW 15.1 % (11.6-15.6); WHITE BLOOD COUNT 14.9 K/mm3 (4.0-10.0)
[2019-06-09 18:13] LABS: EPI CELLS 1.7 /HPF (0-5/HPF); HYALINE CASTS 17 /lpf (0-8); PH,URINE 6.5 (5.0-8.0); URINE APPEARANCE CLOUDY; URINE BILIRUBIN NEGATIVE (NEGATIVE); URINE COLOR ORANGE; URINE GLUCOSE (UA) NEGATIVE (NEGATIVE); URINE KETONE NEGATIVE (NEGATIVE); URINE LEUK ESTERASE 3+ (NEGATIVE); URINE NITRITE NEGATIVE (NEGATIVE); URINE PROTEIN TRACE (NEGATIVE); URINE RBC 911 /hpf (0-4); URINE UROBILINOGEN 0.2 mg/dL (0.2-1.0); URINE WBC 160 /hpf (0-5)
[2019-06-09] MEDS ORDERED: ACETAMINOPHEN 500 MG TABLET (FP) PO ONE (18:17)
[2019-06-09] MEDS ORDERED: ACETAMINOPHEN 325 MG TABLET (FP) ONE (18:25)
--- NOTE | 2019-06-09 18:27 | PDOC ---
History of Present Illness - General Chief Complaint: Vaginal Bleeding Stated Complaint: VAGINAL BLEEDING Time Seen by Provider: 06/09/19 17:24 History Source: Patient Exam Limitations: Language Barrier - History of Present Illness Travel History: No Initial Comments: 06/09/19 18:24 33y F with PMH of Asthma day 2 presenting to ED with complaints of vaginal bleeding. Patient gave vaginally 2d ago which was complicated by hemorrhage. US and DC were done which did not reveal retained products and patient was transfused with 2u of blood. Patient states she went home yesterday afternoon with some spotting. She is complaining of lower abdominal pain and headache for which she is taking 600mg ibuprofen without relief. She states that she has been using 2 pads/hr since this morning. Denies fever, chills, chest pain, sob, lightheadedness, n/v/d. PMD: none SPECIAL OFFICER AUTOMAT: [place] PMH: see hpi Meds: none Allergies: nkda Past History - Past Medical History Allergies/Adverse Reactions: Allergies Allergy/AdvReac Type Severity Reaction Status Date / Time kiwi Allergy Mild Swelling Verified 06/09/19 17:31 Home Medications: Ambulatory Orders Albuterol Sulfate Inhaler - [Ventolin HFA Inhaler -] 1 puff PO PRN 06/06/19 Ferrous Sulfate [Feosol] 325 mg PO BID #60 tablet 06/08/19 Ibuprofen [Motrin -] 600 mg PO QID #28 tablet 06/08/19 Asthma: Yes (last attack 1 1/2 years ago) Cancer: No Cardiac Disorders: No COPD: No DVT: No Diabetes: No HTN: No Seizures: No Thyroid Disease: No - Reproductive History (#): 3 Para: 4 Cervical CA: No Dysfunctional Uterine Bleeding: No Ectopic : No Endometrial CA: No Polycystic Ovaries: No Tubal Ligation: No Spontaneous : 4 - Immunization History Immunization Up to Date: No - Psycho Social/Smoking Cessation Hx Smoking History: Never smoked Have you smoked in the past 12 months: No Information on smoking cessation initiated: No Hx Alcohol Use: No Drug/Substance Use Hx: No Hx Substance Use Treatment: No Review of Systems - Review of Systems Constitutional: No: Chills, Fever HEENTM: No: Symptoms Reported Respiratory: No: Symptoms reported Cardiac (ROS): No: Symptoms Reported ABD/GI: Yes: See HPI : Yes: See HPI Musculoskeletal: Yes: Back Pain Integumentary: No: Symptoms Reported Neurological: No: Symptoms reported *Physical Exam - Vital Signs Last Vital Signs Temp Pulse Resp BP Pulse Ox 99.1 F 101 H 16 111/58 L 98 06/09/19 17:32 06/09/19 17:32 06/09/19 17:32 06/09/19 17:32 06/09/19 18:09 - Physical Exam General Appearance: Yes: Nourished, Appropriately Dressed, Mild Distress HEENT: positive: EOMI, DEWEY, Pale Conjunctivae Neck: positive: Trachea midline, Supple. negative: Lymphadenopathy (R), Lymphadenopathy (L) Respiratory/Chest: positive: Lungs Clear, Normal Breath Sounds Cardiovascular: positive: Regular Rhythm, Regular Rate, S1, S2. negative: Edema , JVD, Murmur Female Pelvic Exam: positive: vaginal bleeding (with clots). negative: CMT Gastrointestinal/Abdominal: positive: Normal Bowel Sounds, Soft, Tenderness ( lower abdominal tenderness) Musculoskeletal: negative: CVA Tenderness Extremity: positive: Normal Capillary Refill. negative: Pedal Edema, Swelling, Calf Tenderness Integumentary: positive: Dry, Warm, Pale Neurologic: positive: chief payroll clerk II-XII NML intact, Fully Oriented, Alert, Normal Mood/ Affect, Normal Response, Motor Strength /5 ED Treatment Course - LABORATORY CBC & Chemistry Diagram: 06/09/19 21:50 06/09/19 17:49 - ADDITIONAL ORDERS Additional order review: Laboratory Results 06/09/19 17:49 Urine Color [place] Urine Appearance Cloudy Urine pH 6.5 Ur Specific [place] 1.018 Urine Protein Trace Urine Glucose (UA) Negative Urine Ketones Negative Urine Blood 3+ H Urine Nitrite Negative Urine Bilirubin Negative Urine Urobilinogen 0.2 Ur Leukocyte Esterase 3+ H Urine WBC (Auto) 160 Urine RBC (Auto) 911 Urine Casts (Auto) 17 U Epithel Cells (Auto) 1.7 Urine Bacteria (Auto) 7.0 06/09/19 17:49 RBC 2.99 L MCV 85.5 MCHC 32.8 RDW 15.1 MPV 6.9 L D Neutrophils % 77.0 Lymphocytes % 13.2 D Monocytes % 6.6 Eosinophils % 2.9 Basophils % 0.3 Medical Decision Making - Medical Decision Making 06/09/19 21:50 33y F day 2 presenting with vaginal bleeding. vitals: tachycardia ddx includes but not limited to retained products, uterine atony, uti, appendicitis labs ordered by rme including ts iv fluids 975mg tylenol cased discussed wiht Dr. Dow, recommended to discuss case with dr control systems developer. labs show hgb 8 (was 6 prior to transfusion 2 d ago) leukocytosis 15 and uti -rocephin -toradol patient in pain still, will give iv toradol rpt tvus and ctap with iv contrast. patient states she has used two pads since being here (4h) 06/10/19 01:05 rpt h/h 7.5. discussed case multiple times with Dr. Akbar. Could not reach Dr. Dow. US: no retained products CTAp: Discussed case with Dr. Muir: will transfuse 1u and accepts patient to service. pt admited to Dr. Muir pt signed consent for transfusion. likely IR embolization to control bleeding. Discharge - Discharge Information Problems reviewed: Yes Clinical Impression/Diagnosis: Vaginal bleeding Condition: Stable - Admission Yes - Follow up/Referral - Patient Discharge Instructions - Post Discharge Activity
[2019-06-09 18:33] LABS: ALBUMIN 2.5 g/dl (3.4-5.0); BILIRUBIN,TOTAL 0.2 mg/dL (0.2-1); BLOOD UREA NITROGEN 7.4 mg/dL (7-18); CREATININE 0.6 mg/dL (0.55-1.3); POTASSIUM 3.4 mmol/L (3.5-5.1); TOT PROT 5.6 g/dl (6.4-8.2)
[2019-06-09 18:54] LABS: INR 0.84 (0.83-1.09); PROTHROMBIN TIME (PATIENT) 9.9 SEC (9.7-13.0)
--- NOTE | 2019-06-09 19:42 | PDOC ---
Documentation entered by Lindsey Porras SCRIBE, acting as scribe for Lashanda Narvaez DO. Lashanda Narvaez, DO: This documentation has been prepared by the Chiquita wall Adrianna, SCRIBE, under my direction and personally reviewed by me in its entirety. I confirm that the documentation accurately reflects all work, treatment, procedures, and medical decision making performed by me. Attending Attestation - Resident Resident Name: DebBisi - ED Attending Attestation I have performed the following: I have examined & evaluated the patient, The case was reviewed & discussed with the resident, I agree w/resident's findings & plan, Exceptions are as noted - HPI HPI: The patient is a 33 year old female, with a significant PMH of asthma, who presents to the ED for evaluation of vaginal bleeding for 2 days. Patient is day 2 , from a vaginal delivery that was complicated by hemorrhaging. US and DC following the were negative for retained products , and she was transfused with two units of blood. She reports some spotting yesterday afternoons, which progressively worsened to soaking through 2 pads every hour today. Patient endorses diffuse lower abdominal pain and headache. Allergies: Kiwi Surgical History: None reported Social History: Denies EtOH, tobacco, or illicit drug use PCP: None CLIPPER OPERATOR: Dr. Dow - Physicial Exam PE: Constitutional: Awake, alert, oriented. No acute distress. Head: Normocephalic. Atraumatic Eyes: PERRL. EOMI. Conjunctivae are not pale. ENT: Mucous membranes are moist and intact. Posterior pharynx without exudates or erythema. Uvula midline. Neck: Supple. Full ROM. No lymphadenopathy. Cardiovascular: +Tachycardic. Regular rhythm. S1, S2 regular. Distal pulses are 2+ and symmetric. Pulmonary/Chest: No evidence of respiratory distress. Clear to auscultation bilaterally No wheezing, rales or rhonchi. Abdominal: +Diffuse lower abdominal tenderness to palpation. Soft and non- distended. No rebound, guarding or rigidity. No organomegaly. No palpable masses. Good bowel sounds. Back: +Lumbar spine midline tenderness to palpation over epidural site, without cellulitis or drainage of fluid. No CVA tenderness. Musculoskeletal: No edema. No cyanosis. No clubbing. Full range of motion in all extremities. Nocalf tenderness. Radial/pedal pulses are intact and 2+ bilaterally Skin: Skin is warm and dry. No petechiae. No purpura. Neurological: Alert and oriented to person, place, and time. Cranial nerves II -XII are grossly intact. Normal speech. Strength is grossly symmetric. No sensory deficits. Psychiatric: Good eye contact. Normal interaction, affect and behavior. - Medical Decision Making 06/09/19 19:38 I, Dr. Lashanda Narvaez, DO, attest that this document has been prepared under my direction and personally reviewed by me in its entirety. I further attest, that it accurately reflects all work, treatment, procedures and medical decision -making performed by me. a/p: 33yo female 2 s/p vaginal delivery complicated by heavy vaginal bleeding s/ p d&c yesterday -pt still with bleeding today - passing clots, bled through 14 pads -c/o abd pain, back pain -pt c/o feeling lightheaded -will send labs, discuss with Dr. Dow, ivf hydration -pelvic per resident -will monitor and reassess 06/09/19 19:43 resident discussed the case with Dr. Dow who states she should be seen by OB irrigation system installer pt with elevated wbc pt with uti will start abx hgb stable - s/p transfusion after delivery 06/09/19 22:[address] Akbar who states pt needs to be seen by Dr. Dow another call placed to Dr. Dow - left message 06/09/19 23:26 case again discussed with Dr. Akbar who will attempt to get in touch with Dr. Dow 06/10/19 00:07 resident discussed the case with Dr. Muir who accepts pt to service ED Treatment Course - LABORATORY CBC & Chemistry Diagram: 06/09/19 21:50 06/09/19 17:49 - ADDITIONAL ORDERS Additional order review: Laboratory Results 06/09/19 06/09/19 06/09/19 17:49 17:49 17:49 PT with INR 9.90 INR 0.84 Sodium Potassium Chloride Carbon Dioxide Anion Gap BUN Creatinine Est GFR (CKD-EPI)AfAm Est GFR (CKD-EPI)NonAf Random Glucose Calcium Total Bilirubin AST ALT Alkaline Phosphatase Total Protein Albumin Urine Color [place] Urine Appearance Cloudy Urine pH 6.5 Ur Specific [place] 1.018 Urine Protein Trace Urine Glucose (UA) Negative Urine Ketones Negative Urine Blood 3+ H Urine Nitrite Negative Urine Bilirubin Negative Urine Urobilinogen 0.2 Ur Leukocyte Esterase 3+ H Urine WBC (Auto) 160 Urine RBC (Auto) 911 Urine Casts (Auto) 17 U Epithel Cells (Auto) 1.7 Urine Bacteria (Auto) 7.0 Blood Type O POSITIVE Antibody Screen Negative 06/09/19 17:49 PT with INR INR Sodium 140 Potassium 3.4 L Chloride 108 H Carbon Dioxide 25 Anion Gap 7 L BUN 7.4 Creatinine 0.6 Est GFR (CKD-EPI)AfAm 136.87 Est GFR (CKD-EPI)NonAf 118.09 Random Glucose 98 Calcium 8.0 L Total Bilirubin 0.2 AST 53 H ALT 42 Alkaline Phosphatase 132 H Total Protein 5.6 L Albumin 2.5 L Urine Color Urine Appearance Urine pH Ur Specific [place] Urine Protein Urine Glucose (UA) Urine Ketones Urine Blood Urine Nitrite Urine Bilirubin Urine Urobilinogen Ur Leukocyte Esterase Urine WBC (Auto) Urine RBC (Auto) Urine Casts (Auto) U Epithel Cells (Auto) Urine Bacteria (Auto) Blood Type Antibody Screen 06/09/19 06/09/19 21:50 17:49 RBC 2.64 L 2.99 L MCV 84.8 85.5 MCHC 33.7 32.8 RDW 15.2 15.1 MPV 6.9 L 6.9 L D Neutrophils % 75.4 77.0 Lymphocytes % 14.8 13.2 D Monocytes % 6.5 6.6 Eosinophils % 2.9 2.9 Basophils % 0.4 0.3 - RADIOLOGY Radiograph Interpretation: EXAM#: TYPE/EXAM: RESULT: [id number] US/PELVIC / BLADDER US HISTORY PROVIDED: Rule out retained products of conception. IMPRESSION: uterus with thickened endometrium and no definite evidence of retained products of conception. Reported By: Wood Garner MD 06/09/19 23:12 - Medications Given in the ED: ED Medications Discontinued Medications Generic Name Dose Route Start Last Admin Trade Name Freq PRN Reason Stop Dose Admin Acetaminophen 975 mg 06/09/19 18:17 06/09/19 18:30 Tylenol - PO 06/09/19 18:18 975 mg ONCE ONE Administration Sodium Chloride 1,000 mls @ 1,000 mls/hr 06/09/19 17:32 06/09/19 18:24 Normal Saline - IV 06/09/19 18:31 1,000 mls/hr ASDIR STA Administration Ceftriaxone Sodium 1 gm/ 100 mls @ 200 mls/hr 06/09/19 19:43 06/09/19 20:34 Dextrose IVPB 06/09/19 20:12 200 mls/hr ONCE ONE Administration Ibuprofen 600 mg 06/09/19 21:02 06/09/19 21:57 Motrin - PO 06/09/19 21:03 Not Given ONCE ONE Ketorolac Tromethamine 15 mg 06/09/19 21:25 06/09/19 21:56 Toradol Injection - IVPUSH 06/09/19 21:26 15 mg ONCE ONE Administration
[2019-06-09] MEDS ORDERED: CEFTRIAXONE 1 GM in DEXTROSE 5%-WATER - 100 ML IVPB ONE (19:43)
[2019-06-09] MEDS ORDERED: CEFTRIAXONE 1 GM/50 ML BAG ONE (20:28)
[2019-06-09] MEDS ORDERED: IBUPROFEN 600 MG TABLET (FP) PO ONE (21:02)
[2019-06-09] MEDS ORDERED: KETOROLAC TROMETHAMINE 30 MG/1 ML VIAL IVPUSH ONE (21:25)
[2019-06-09] MEDS ORDERED: KETOROLAC TROMETHAMINE 15 MG/ML VIAL ONE (21:46)
[2019-06-09 22:10] LABS: BASO % 0.4 % (0-2.0); EOS % 2.9 % (0-4.5); HEMATOCRIT 22.4 % (32.4-45.2); HEMOGLOBIN 7.5 GM/dL (10.7-15.3); LYMPH % 14.8 % (8-40); MCH 28.5 pg (25.7-33.7); MCHC 33.7 g/dl (32.0-36.0); MEAN CELL VOLUME 84.8 fl (80-96); MEAN PLT VOLUME 6.9 fl (7.5-11.1); MONO % 6.5 % (3.8-10.2); NEUT % 75.4 % (42.8-82.8); PLATELET COUNT 416 K/MM3 (134-434); RBC 2.64 M/mm3 (3.60-5.2); RDW 15.2 % (11.6-15.6); WHITE BLOOD COUNT 12.9 K/mm3 (4.0-10.0)
[2019-06-10] MEDS ORDERED: GENTAMICIN INJECTION 400 MG in SODIUM CHLORIDE 100 ML IVPB ONE (02:10)
[2019-06-10 03:25] VITALS: BMI 25.9
--- NOTE | 2019-06-10 05:17 | PN ---
Progress Note (SOAP) - Objective Vital Signs: Vital Signs Temperature 98.2 F 06/10/19 02:45 Pulse Rate 97 H 06/10/19 02:45 Respiratory Rate 18 06/10/19 02:45 Blood Pressure 117/69 06/10/19 02:45 O2 Sat by Pulse Oximetry (%) 100 06/10/19 02:45 Constitutional: Yes: Well Nourished, No Distress Gastrointestinal: Yes: WNL, Soft Genitourinary: Yes: Vaginal Bleeding ....Post : Yes: Uterus firm Breast(s): Yes: WNL Musculoskeletal: Yes: WNL Extremities: Yes: WNL Edema: No Neurological: Yes: WNL, Alert, Oriented Labs Lab Results: CBC, BMP 06/09/19 21:50 06/09/19 17:49 Assessment/Plan hemorrhage Anemia Plan [place] consult with IR
[2019-06-10] MEDS ORDERED: IBUPROFEN 600 MG TABLET (FP) PO PRN (05:26)
--- NOTE | 2019-06-10 09:20 | PN ---
Progress Note (SOAP) - Subjective Chief Complaint: Pt seen and examined - Current Medications Current Medications: Active Medications Ibuprofen (Motrin -) 600 mg PO Q8H PRN PRN Reason: PAIN LEVEL 1 - 3 Last Admin: 06/10/19 05:46 Dose: 600 mg - Objective Vital Signs: Vital Signs Temperature 98.4 F 06/10/19 08:56 Pulse Rate 76 06/10/19 08:56 Respiratory Rate 18 06/10/19 08:56 Blood Pressure 97/53 L 06/10/19 08:56 O2 Sat by Pulse Oximetry (%) 97 06/10/19 08:56 Constitutional: Yes: Well Nourished, No Distress Gastrointestinal: Yes: WNL, Soft Genitourinary: Yes: Vaginal Bleeding (mild lochia) Breast(s): Yes: WNL, Gynecomastia Extremities: Yes: WNL Labs Lab Results: CBC, BMP 06/09/19 21:50 06/09/19 17:49 Assessment/Plan hemorrhage improved after transfusion Anemia Plan DC home after CBC checked
[2019-06-10 13:04] LABS: HEMATOCRIT 30.4 % (32.4-45.2); MCH 28.6 pg (25.7-33.7); MEAN CELL VOLUME 86.7 fl (80-96); MEAN PLT VOLUME 7.1 fl (7.5-11.1); PLATELET COUNT 425 K/MM3 (134-434); RBC 3.51 M/mm3 (3.60-5.2); WHITE BLOOD COUNT 12.1 K/mm3 (4.0-10.0)
[2019-06-10 14:34] VITALS: BP 106/57; TEMP 98.7
[2019-06-10 15:48] VITALS: PULSE 85
== END 2019-06-10 17:06 | disposition home or self-care (01) | DRG 776 ==
LOC: JER 17:23 → JERBED 06-10 00:03 → J5S 06-10 02:30
PROVIDERS: ADMIT Obstetrics & Gynecology; ATTEND Obstetrics & Gynecology
PROC: 30233N1 Transfusion of Nonautologous Red Blood Cells into Peripheral Vein, Percutaneous Approach (ICD-10-PCS; principal; 2019-06-10)
DX: O72.2 Delayed and secondary postpartum hemorrhage (principal); O90.81 Anemia of the puerperium
CPT/HCPCS: 36415; 36430; 36511; 74177-TC; 76856-TC; 80053; 81003; 85025; 85027; 85610; 86850; 86900; 86901; 86922; 99285-25; J7030; P9038; P9058

== ENCOUNTER 2019-09-29 06:02 | Day surgery (SDC) | payer BC ==
[2019-09-28 13:51] VITALS: BMI 28.3
[~2019-09-29 06:02] MED LIST: BUPIVACAINE HCL/PF 0.5% (5MG/ML) 10 ML VIAL IJ ONE
[2019-09-29 06:41] LABS: HEMATOCRIT 39.5 % (32.4-45.2); HEMOGLOBIN 13.5 GM/dL (10.7-15.3); MCH 28.9 pg (25.7-33.7); MCHC 34.2 g/dl (32.0-36.0); MEAN CELL VOLUME 84.5 fl (80-96); MEAN PLT VOLUME 7.2 fl (7.5-11.1); PLATELET COUNT 454 K/MM3 (134-434); RBC 4.68 M/mm3 (3.60-5.2); RDW 14.3 % (11.6-15.6); WHITE BLOOD COUNT 7.6 K/mm3 (4.0-10.0)
[2019-09-29] MEDS ORDERED: MIDAZOLAM HCL 2 MG/2 ML SINGLE DOSE VIAL ONE (07:37)
[2019-09-29] MEDS ORDERED: ROCURONIUM BROMIDE 50 MG/5 ML SYRINGE ONE (07:38)
[2019-09-29] MEDS ORDERED: PROPOFOL 20 ML ONE (07:38)
--- NOTE | 2019-09-29 07:47 | HP ---
Admitting History and Physical - Admission Chief Complaint: Multiparity/desires permanent sterilization History of Present Illness: 33 yo Para 2, desires premanent sterilization. She's pre op for laparoscopic bilateral tubal ligation. History Source: Patient Limitations to Obtaining History: No Limitations - Past Medical History Pulmonary: Yes: Asthma ...LMP: 09/27/19 ...: No ...Para: 2 - Past Surgical History Past Surgical History: Yes: None - Smoking History Smoking history: Never smoked Have you smoked in the past 12 months: No - Alcohol/Substance Use Hx Alcohol Use: No - Social History History of Recent Travel: No Home Medications - Allergies Allergies/Adverse Reactions: Allergies Allergy/AdvReac Type Severity Reaction Status Date / Time kiwi Allergy Severe Swelling Verified 09/29/19 07:15 - Home Medications Home Medications: Ambulatory Orders NK [No Known Home Medication] 09/28/19 Family Medical History Family History: Unremarkable Review of Systems - Review of Systems Constitutional: reports: No Symptoms Eyes: reports: No Symptoms HENT: reports: No Symptoms Neck: reports: No Symptoms Cardiovascular: reports: No Symptoms Respiratory: reports: No Symptoms Gastrointestinal: reports: No Symptoms Genitourinary: reports: No Symptoms Breasts: reports: No Symptoms Reported Musculoskeletal: reports: No Symptoms Integumentary: reports: No Symptoms Neurological: reports: No Symptoms Endocrine: reports: No Symptoms Psychiatric: reports: No Symptoms Pain Intensity: 0 Physical Examination Vital Signs: Vital Signs Temperature 98.2 F 09/29/19 07:14 Pulse Rate 61 09/29/19 07:14 Respiratory Rate 20 09/29/19 07:14 Blood Pressure 106/62 09/29/19 07:14 O2 Sat by Pulse Oximetry (%) 99 09/29/19 07:11 Constitutional: Yes: No Distress Eyes: Yes: Conjunctiva Clear HENT: Yes: Atraumatic Neck: Yes: Supple Cardiovascular: Yes: Regular Rate and Rhythm Respiratory: Yes: Regular Gastrointestinal: Yes: Normal Bowel Sounds Breast(s): Yes: WNL Musculoskeletal: Yes: WNL Extremities: Yes: WNL Neurological: Yes: Alert, Oriented ...Motor Strength: WNL Psychiatric: Yes: Alert, Oriented Labs: CBC, BMP 09/29/19 06:10 Problem List - Problems (1) Multiparity Problems reviewed: Yes Code(s): Z64.1 - PROBLEMS RELATED TO MULTIPARITY (2) Admission for sterilization Problems reviewed: Yes Code(s): Z30.2 - ENCOUNTER FOR STERILIZATION Assessment/Plan Multiparity Permanent sterilization Pre op for Lap BTL Consent signed Anesthesia to see patient
[2019-09-29] MEDS ORDERED: SUCCINYLCHOLINE CHLORIDE 200 MG/10 ML SYRINGE ONE ×2 (08:13)
[2019-09-29] MEDS ORDERED: BUPIVACAINE HCL/PF 0.5% (5MG/ML) 10 ML VIAL IJ ONE (08:55)
[2019-09-29] MEDS ORDERED: NEOSTIGMINE METHYLSULFATE 0.5 MG/ML - 10 ML MDV ONE (08:56)
--- NOTE | 2019-09-29 08:59 | OP ---
Operative Note - Note: Operative Date: 09/29/19 Pre-Operative Diagnosis: Multiparity Operation: Laparoscopic bilateral tubal ligation Post-Operative Diagnosis: Same as Pre-op Surgeon: Ambar Dow Anesthesia: General Specimens Removed: None Estimated Blood Loss (mls): 5 Operative Report Dictated: Yes
[2019-09-29] MEDS ORDERED: PROMETHAZINE HCL 25 MG/1 ML VIAL IVPB PRN (09:13)
[2019-09-29] MEDS ORDERED: oxyCODONE HCL 5 MG TABLET PO PRN (09:13)
[2019-09-29] MEDS ORDERED: ONDANSETRON 4 MG/2 ML VIAL IVPUSH PRN (09:13)
[2019-09-29] MEDS ORDERED: LACTATED RINGERS SOLUTION 1,000 ML IV SCH (09:15)
[2019-09-29] MEDS ORDERED: ALBUTEROL SO4 0.5 % INH SOLN 2.5 MG/0.5 ML VIAL.NEB. NEB ONE (09:28)
[2019-09-29] MEDS ORDERED: ALBUTEROL SO4 0.083% IH SOL 2.5 MG/3 ML VIAL.NEB. NEB ONE (09:29)
[2019-09-29] MEDS ORDERED: PROTAMINE SULFATE 50 MG/5 ML VIAL ONE (10:23)
[2019-09-29 10:55] VITALS: PULSE 66
[2019-09-29 12:14] VITALS: TEMP 97.8
[2019-09-29 14:58] VITALS: BP 112/70
--- NOTE | 2019-10-07 10:28 | OP ---
DATE OF OPERATION: 09/29/2019 PREOPERATIVE DIAGNOSIS: Multiparity desired permanent sterilization. POSTOPERATIVE DIAGNOSIS: Multiparity desired permanent sterilization. PROCEDURE: Laparoscopic bilateral tubal ligation. SURGEON: Ambar Dow MD ANESTHESIA: General. COMPLICATIONS: None. ESTIMATED BLOOD LOSS: 5 mL PROCEDURE: Patient was taken to the operating room where general anesthesia was administered. Patient was then examined under anesthesia and found to have a small anteverted uterus. She was placed in lithotomy position, prepped and draped in appropriate sterile fashion. A weighted speculum was placed in the vagina and the anterior lip of the cervix was grasped with the single-tooth tenaculum. A HUMI uterine manipulator was advanced into the uterus to provide a means to manipulate the uterus, then the speculum was removed from the vagina and the Acuña catheter was inserted. Attention was then turned to the patient's abdomen where a 5 mm skin incision was made in the umbilical fold. The Veress needle was carefully introduced into the peritoneal cavity while tenting the abdominal wall. Intraperitoneal placement was confirmed by use of the water filled syringe and drop in intraabdominal pressure with insufflation of CO2 gas. The trocar and sleeve were then advanced without difficulty into the abdomen where intraabdominal placement was confirmed by the laparoscope. Pneumoperitoneum was obtained with 3 L of CO2 gas and the 5 mm trocar and sleeve were then advanced without difficulty into the abdomen. The intraabdominal placement was confirmed by the laparoscope. A second skin incision was made 2 cm above the pubic symphysis in the midline. The second trocar and sleeve were then advanced under direct visualization. A survey of the patient's pelvis and abdomen revealed entirely normal anatomy and the LigaSure was advanced through the second trocar and sleeve and the patient's left fallopian tube was identified and followed out to the fimbriated end. Using the LigaSure device the left tube was then cauterized in 3 consecutive areas and complete blanching was noted and the same procedure was performed on the right side. There was no bleeding noted. The instruments were removed. The patient was taken out of lithotomy position. The incisions were repaired with 2-0 Biosyn and Dermabond and then the HUMI and Acuña catheter were then removed. Patient tolerated the procedure well. Patient was then taken to PACU in stable condition. AMBAR DOW M.D. [id number]
== END 2019-09-29 12:45 | disposition home or self-care (01) ==
LOC: JASU-SURG 06:02
PROVIDERS: ATTEND Obstetrics & Gynecology
PROC: 0UB74ZZ Excision of Bilateral Fallopian Tubes, Percutaneous Endoscopic Approach (ICD-10-PCS; principal; 2019-09-29 07:30)
DX: Z30.2 Encounter for sterilization (principal); Z64.1 Problems related to multiparity
CPT/HCPCS: 36415; 84703; 85027; 94760

== ENCOUNTER 2021-10-04 09:10 | Emergency (ER) | payer BC ==
[2021-10-04 09:23] VITALS: BMI 32.2
[2021-10-04 10:25] LABS: EPI CELLS 14 /uL (0-25.1); HYALINE CASTS 0 /uL (0-3.1); PH,URINE 6.5 (5.0-8.0); URINE APPEARANCE CLEAR; URINE BACTERIA 6076 /uL (0-1359); URINE BILIRUBIN NEGATIVE (NEGATIVE); URINE COLOR YELLOW; URINE GLUCOSE (UA) NEGATIVE (NEGATIVE); URINE KETONE NEGATIVE (NEGATIVE); URINE LEUK ESTERASE 2+ (NEGATIVE); URINE NITRITE NEGATIVE (NEGATIVE); URINE PROTEIN NEGATIVE (NEGATIVE); URINE RBC 14 /uL (0-23.9); URINE UROBILINOGEN 0.2 mg/dL (0.2-1.0); URINE WBC 175 /uL (0-25.8)
[2021-10-04] MEDS ORDERED: CEFTRIAXONE 1 GM in DEXTROSE 5%-WATER - 50 ML IVPB ONE (10:39)
[2021-10-04] MEDS ORDERED: KETOROLAC TROMETHAMINE 30 MG/1 ML VIAL IVPUSH ONE (10:40)
[2021-10-04] MEDS ORDERED: SODIUM CHLORIDE 1,000 ML IV STA (10:46)
[2021-10-04] MEDS ORDERED: KETOROLAC TROMETHAMINE 30 MG/1 ML VIAL ONE (10:47)
[2021-10-04] MEDS ORDERED: CEFTRIAXONE 1 GM/50 ML BAG ONE (10:48)
[2021-10-04 11:20] LABS: BASO % 0.3 % (0-2.0); EOS % 1.2 % (0-4.5); HEMATOCRIT 38.7 % (32.4-45.2); LYMPH % 18.1 % (8-40); MCH 28.5 pg (25.7-33.7); MCHC 33.5 g/dl (32.0-36.0); MEAN PLT VOLUME 7.2 fl (7.5-11.1); MONO % 9.8 % (3.8-10.2); NEUT % 70.6 % (42.8-82.8); PLATELET COUNT 399 10^3/uL (134-434); RBC 4.55 M/mm3 (3.60-5.2); RDW 13.4 % (11.6-15.6); WHITE BLOOD COUNT 11.1 K/mm3 (4.0-10.0)
[2021-10-04 11:48] LABS: ALBUMIN 3.9 g/dl (3.4-5.0); BLOOD UREA NITROGEN 8.4 mg/dL (7-18); CALCIUM 8.9 mg/dL (8.5-10.1)
[2021-10-04 11:51] LABS: CREATININE 0.7 mg/dL (0.55-1.3)
[2021-10-04 11:53] LABS: BILIRUBIN,TOTAL 0.6 mg/dL (0.2-1); TOT PROT 7.4 g/dl (6.4-8.2)
[2021-10-04 12:50] VITALS: BP 124/68; PULSE 82; TEMP 98.5
== END 2021-10-04 13:05 | disposition home or self-care (01) ==
LOC: JERFT 09:10
PROC: 3E033GC Introduction of Other Therapeutic Substance into Peripheral Vein, Percutaneous Approach (ICD-10-PCS; principal; 2021-10-04)
DX: R10.9 Unspecified abdominal pain (principal); R30.0 Dysuria
CPT/HCPCS: 36415; 80053; 81003; 84703; 85025; 87086; 87186; 99284-25

== ENCOUNTER 2022-07-06 16:08 | Emergency (ER) | payer BC ==
[2022-07-06 16:28] VITALS: BP 117/53; PULSE 68; RESP 18; TEMP 98.2; BMI 32.2
== END 2022-07-06 17:15 | disposition home or self-care (01) ==
LOC: JER 16:08
DX: H00.012 Hordeolum externum right lower eyelid (principal)
CPT/HCPCS: 99283-25

== ENCOUNTER 2024-01-27 12:40 | Inpatient (IN) | payer BC ==
[2024-01-27] MEDS ORDERED: PIPERACILLIN/TAZOB 3.375 GM 3.375 GM/50 ML BAG IVPB ONE (15:02)
[2024-01-27] MEDS ORDERED: ONDANSETRON 4 MG/2 ML VIAL ONE (15:02)
[2024-01-27] MEDS ORDERED: morphine SULFATE 4 MG/ML VIAL ONE (15:02)
[2024-01-27] MEDS: morphine CARPU-JECT 4 MG/1 ML DISP.SYRIN IVPUSH ONE (16:14)
[2024-01-27] MEDS: SODIUM CHLORIDE 0.9% 500 ML INFUS.BAG IV ONE ×2 (16:14→19:47)
[2024-01-27] MEDS: PIPERACILLIN/TAZOB 3.375 GM 3.375 GM in DEXTROSE 5%-WATER - 50 ML IVPB ONE (16:15)
[2024-01-27] MEDS: ONDANSETRON 4 MG/2 ML VIAL IVPUSH ONE (16:15)
[2024-01-27 16:20] LABS: BASO % 0.3 % (0-2.0); EOS % 0.1 % (0-4.5); HEMATOCRIT 40.5 % (32.4-45.2); HEMOGLOBIN 13.6 GM/dL (10.7-15.3); LYMPH % 5.5 % (8-40); MCH 28.6 pg (25.7-33.7); MCHC 33.6 g/dl (32.0-36.0); MEAN CELL VOLUME 85.2 fl (80-96); MEAN PLT VOLUME 6.3 fl (7.5-11.1); NEUT % 87.1 % (42.8-82.8); PLATELET COUNT 448 10^3/uL (134-434); RBC 4.75 M/mm3 (3.60-5.2); WHITE BLOOD COUNT 15.5 K/mm3 (4.0-10.0)
[2024-01-27 16:29] LABS: INR 1.15 (0.83-1.09); PROTHROMBIN TIME (PATIENT) 13.2 SEC (9.7-13.0)
[2024-01-27 16:32] LABS: ACTIVATED PTT 32.9 SECONDS (25.2-36.5)
[2024-01-27 16:46] LABS: POTASSIUM 3.7 mmol/L (3.5-5.1)
[2024-01-27 16:48] LABS: ALBUMIN 3.8 g/dl (3.4-5.0); BLOOD UREA NITROGEN 8.8 mg/dL (7-18); CALCIUM 8.9 mg/dL (8.5-10.1)
[2024-01-27 16:51] LABS: CREATININE 0.8 mg/dL (0.55-1.3)
[2024-01-27 16:53] LABS: TOT PROT 7.8 g/dl (6.4-8.2)
[2024-01-27 16:58] LABS: EPI CELLS 35 /uL (0-25.1); HYALINE CASTS 0 /uL (0-3.1); PH,URINE 6.5 (5.0-8.0); URINE APPEARANCE CLEAR; URINE BACTERIA >9,000 /uL (0-1359); URINE BILIRUBIN NEGATIVE (NEGATIVE); URINE COLOR YELLOW; URINE GLUCOSE (UA) NEGATIVE (NEGATIVE); URINE KETONE NEGATIVE (NEGATIVE); URINE LEUK ESTERASE 1+ (NEGATIVE); URINE NITRITE POSITIVE (NEGATIVE); URINE PROTEIN NEGATIVE (NEGATIVE); URINE RBC 13 /uL (0-23.9); URINE UROBILINOGEN 0.2 mg/dL (0.2-1.0); URINE WBC 87 /uL (0-25.8)
[2024-01-27 16:58] LABS: BILIRUBIN,TOTAL 0.8 mg/dL (0.2-1)
[2024-01-27] MEDS ORDERED: ACETAMINOPHEN INJECTION 100 ML IVPB ONE (19:39)
[2024-01-27] MEDS ORDERED: KETOROLAC TROMETHAMINE 15 MG/ML VIAL ONE (19:39)
[2024-01-27] MEDS: KETOROLAC TROMETHAMINE 15 MG/ML VIAL IVPUSH ONE (19:47)
[2024-01-27] MEDS: ACETAMINOPHEN 1000 MG/100 ML BAG IVPB ONE (19:47)
[2024-01-27] MEDS: SODIUM CHLORIDE 1,000 ML IV SCH ×2 (21:08→22:15)
[2024-01-27] MEDS ORDERED: ONDANSETRON 4 MG/2 ML VIAL IVPUSH PRN (21:36)
[2024-01-27 23:32] VITALS: BMI 26.5
[2024-01-28] MEDS ORDERED: ALBUTEROL SO4 HFA INHALER IH PRN (04:17)
[2024-01-28] MEDS: ACETAMINOPHEN 325 MG TABLET (FP) PO PRN (04:34)
[2024-01-28] MEDS: ENOXAPARIN NA (PORCINE) 40 MG/0.4 ML DISP.SYRIN SQ SCH (09:58)
[2024-01-28] MEDS: CEFTRIAXONE 1 GM in DEXTROSE 5%-WATER - 50 ML IVPB SCH (09:58)
[2024-01-28 10:44] LABS: HEMATOCRIT 35.5 % (32.4-45.2); HEMOGLOBIN 11.7 GM/dL (10.7-15.3); MCH 28.4 pg (25.7-33.7); MCHC 32.8 g/dl (32.0-36.0); MEAN CELL VOLUME 86.7 fl (80-96); MEAN PLT VOLUME 6.5 fl (7.5-11.1); PLATELET COUNT 383 10^3/uL (134-434); RDW 13.4 % (11.6-15.6); WHITE BLOOD COUNT 14.2 K/mm3 (4.0-10.0)
[2024-01-28 11:09] LABS: POTASSIUM 3.8 mmol/L (3.5-5.1)
[2024-01-28 11:30] LABS: BLOOD UREA NITROGEN 5.5 mg/dL (7-18)
[2024-01-28 11:32] LABS: BILIRUBIN,TOTAL 0.6 mg/dL (0.2-1); CREATININE 0.6 mg/dL (0.55-1.3)
[2024-01-28 11:34] LABS: ALBUMIN 2.9 g/dl (3.4-5.0)
[2024-01-28] MEDS: SODIUM CHLORIDE 1,000 ML IV SCH (14:16)
[2024-01-28] MEDS: ACETAMINOPHEN 1000 MG/100 ML BAG IVPB ONE (14:16)
[2024-01-28] MEDS: PIPERACILLIN/TAZOB 3.375 GM 3.375 GM in DEXTROSE 5%-WATER - 50 ML IVPB SCH (17:59)
[2024-01-29] MEDS: SODIUM CHLORIDE 1,000 ML IV SCH (02:50)
[2024-01-29 08:50] LABS: HEMATOCRIT 36.8 % (32.4-45.2); HEMOGLOBIN 11.8 GM/dL (10.7-15.3); MCH 28.3 pg (25.7-33.7); MCHC 32.1 g/dl (32.0-36.0); MEAN CELL VOLUME 88.2 fl (80-96); MEAN PLT VOLUME 6.6 fl (7.5-11.1); PLATELET COUNT 404 10^3/uL (134-434); RBC 4.18 M/mm3 (3.60-5.2); WHITE BLOOD COUNT 12.1 K/mm3 (4.0-10.0)
[2024-01-29 09:15] LABS: POTASSIUM 3.6 mmol/L (3.5-5.1)
[2024-01-29 09:18] LABS: CALCIUM 8.5 mg/dL (8.5-10.1)
[2024-01-29 09:19] LABS: ALBUMIN 3.1 g/dl (3.4-5.0); BLOOD UREA NITROGEN 4.5 mg/dL (7-18)
[2024-01-29 09:22] LABS: CREATININE 0.7 mg/dL (0.55-1.3)
[2024-01-29 09:23] LABS: BILIRUBIN,TOTAL 0.6 mg/dL (0.2-1)
[2024-01-29] MEDS: IBUPROFEN 400 MG TABLET (FP) PO ONE (10:02)
[2024-01-29] MEDS: PIPERACILLIN/TAZOB 3.375 GM 3.375 GM in DEXTROSE 5%-WATER - 50 ML IVPB SCH (14:31)
[2024-01-29] MEDS: CEFTRIAXONE 2 GM in DEXTROSE 5%-WATER 100 ML IVPB SCH (17:11)
[2024-01-29] MEDS ORDERED: CEFTRIAXONE 1 GM in DEXTROSE 5%-WATER - 50 ML IVPB SCH (18:00)
[2024-01-30 10:20] LABS: HEMATOCRIT 36.9 % (32.4-45.2); HEMOGLOBIN 12.4 GM/dL (10.7-15.3); MCHC 33.6 g/dl (32.0-36.0); MEAN CELL VOLUME 86.4 fl (80-96); MEAN PLT VOLUME 6.5 fl (7.5-11.1); PLATELET COUNT 552 10^3/uL (134-434); RBC 4.27 M/mm3 (3.60-5.2); RDW 13.8 % (11.6-15.6); WHITE BLOOD COUNT 7.5 K/mm3 (4.0-10.0)
[2024-01-30 10:37] LABS: POTASSIUM 3.7 mmol/L (3.5-5.1)
[2024-01-30 10:38] LABS: ALBUMIN 3.2 g/dl (3.4-5.0); BLOOD UREA NITROGEN 5.4 mg/dL (7-18); CALCIUM 9.1 mg/dL (8.5-10.1)
[2024-01-30 10:41] LABS: CREATININE 0.7 mg/dL (0.55-1.3)
[2024-01-30 10:43] LABS: BILIRUBIN,TOTAL 0.4 mg/dL (0.2-1); TOT PROT 7.4 g/dl (6.4-8.2)
[2024-01-31 09:49] LABS: HEMATOCRIT 36.7 % (32.4-45.2); HEMOGLOBIN 12.5 GM/dL (10.7-15.3); MCH 29.3 pg (25.7-33.7); MCHC 34.1 g/dl (32.0-36.0); MEAN CELL VOLUME 85.7 fl (80-96); MEAN PLT VOLUME 6.3 fl (7.5-11.1); PLATELET COUNT 609 10^3/uL (134-434); RBC 4.28 M/mm3 (3.60-5.2); RDW 13.8 % (11.6-15.6); WHITE BLOOD COUNT 6.5 K/mm3 (4.0-10.0)
[2024-01-31 10:03] LABS: POTASSIUM 3.9 mmol/L (3.5-5.1)
[2024-01-31 10:06] LABS: CALCIUM 9.5 mg/dL (8.5-10.1)
[2024-01-31 10:07] LABS: ALBUMIN 3.3 g/dl (3.4-5.0); BLOOD UREA NITROGEN 10.6 mg/dL (7-18)
[2024-01-31 10:10] LABS: CREATININE 0.8 mg/dL (0.55-1.3)
[2024-01-31 10:12] LABS: BILIRUBIN,TOTAL 0.5 mg/dL (0.2-1); TOT PROT 7.7 g/dl (6.4-8.2)
[2024-01-31 11:08] VITALS: BP 113/60; PULSE 71; RESP 18; TEMP 98
[2024-01-31] MEDS: CEFPODOXIME PROXETIL 200 MG TABLET [NF] PO ONE (11:18)
== END 2024-01-31 11:55 | disposition home or self-care (01) | DRG 872 ==
LOC: JER 12:40 → JERBED 19:51 → J6S 21:46
PROVIDERS: ADMIT Internal Medicine; ATTEND Internal Medicine
DX: A41.89 Other specified sepsis (principal); N10 Acute pyelonephritis; B96.20 Unspecified Escherichia coli [E. coli] as the cause of diseases classified elsewhere; R94.5 Abnormal results of liver function studies; K76.0 Fatty (change of) liver, not elsewhere classified; J45.909 Unspecified asthma, uncomplicated; R00.0 Tachycardia, unspecified; I95.9 Hypotension, unspecified; D72.829 Elevated white blood cell count, unspecified
CPT/HCPCS: 0241U-QW; 36415; 74177-TC; 76705-TC; 80053; 81003; 83605; 83690; 84703; 85025; 85027; 85610; 85730; 86140; 86850; 86900; 86901; 87040; 87086; 87186; 99285-25; J0131; Q9967